=== PATIENT | male | born 1985 | race Caucasian/White ===

== ENCOUNTER 2021-08-04 16:58 | Outpatient (CLI) | payer OTHER | END 2021-08-04 16:59 | disposition home or self-care (01) | LOC: CSHRAD 16:58 | PROVIDERS: ATTEND Psychiatry & Neurology Neurology | DX: M54.50 Low back pain, unspecified (principal); M25.552 Pain in left hip; M25.551 Pain in right hip; Z98.890 Other specified postprocedural states | CPT/HCPCS: 72100; 72190 ==

== ENCOUNTER 2022-11-27 13:46 | Emergency (ER) | payer OTHER, SELFPAY ==
[2022-11-27] MEDS ORDERED: Ketorolac Tromethamine 30 MG/ML VIAL ONE (14:29)
[2022-11-27] MEDS ORDERED: Ketamine 50 MG/ML (10ML VIAL) ONE (14:30)
== END 2022-11-27 15:09 | disposition home or self-care (01) ==
LOC: CSHERS 13:46
DX: S12.9XXA Fracture of neck, unspecified, initial encounter (principal); F17.210 Nicotine dependence, cigarettes, uncomplicated; V89.2XXA Person injured in unspecified motor-vehicle accident, traffic, initial encounter
CPT/HCPCS: 96374; 96375; J1885